=== PATIENT | female | born 1985 | race Caucasian/White ===

== ENCOUNTER 2017-01-29 04:34 | Emergency (ER) | payer OTHER, MEDICAID ==
[2017-01-29 05:00] VITALS: TEMP 98
[2017-01-29] MEDS ORDERED: Sodium Chloride 0.9% 1,000 ML IV STA (05:02)
--- NOTE | 2017-01-29 05:11 | ED PDOC ---
Arrival/HPI - General Historian: Patient - History of Present Illness Time/Duration: 1-3 hours Severity Level: Mild Activities at Onset: Light Context: Home <Parth Palafox - Last Filed: 01/29/17 05:08> <Florin Sultana - Last Filed: 01/29/17 08:56> - General Chief Complaint: Back Pain Time Seen by Provider: 01/29/17 04:48 - History of Present Illness Narrative History of Present Illness (Text): 01/29/17 05:08 Renetta Diane is a 31 year old female who presents to the emergency department for evaluation of left flank pain for past hour. States that she woke up from sleep with the pain. Reports of associated nausea with multiple episodes of vomiting. Denies any fever, chills, headache, dizziness, chest pain, shortness of breath, abdominal pain, urinary symptoms, or any other complaints at this time. (Parth Palafox) Past Medical History - Provider Review Nursing Documentation Reviewed: Yes - Infectious Disease Hx of Infectious Diseases: None - Tetanus Immunization Tetanus Immunization: Unknown - Past Medical History Past Medical History: No Previous - Psychiatric Hx Psychophysiologic Disorder: No Hx Anxiety: No Hx Bipolar Disorder: No Hx Depression: No Hx Emotional Abuse: No Hx Hallucinations: No Hx Panic Disorder: No Hx Post Traumatic Stress Disorder: No Hx Psychosis: No Hx Physical Abuse: No Hx Schizophrenia: No Hx Sexual Abuse: No Hx Substance Use: No - Past Surgical History Past Surgical History: No Previous - Surgical History Other/Comment: right ear - Anesthesia Hx Anesthesia: No Hx Anesthesia Reactions: No Hx Malignant Hyperthermia: No - Suicidal Assessment Feels Threatened In Home Enviroment: No <Parth Palafox - Last Filed: 01/29/17 05:08> Family/Social History - Physician Review Nursing Documentation Reviewed: Yes Family/Social History: No Known Family HX Smoking Status: Never Smoked Hx Alcohol Use: No Hx Substance Use: No Hx Substance Use Treatment: No <Parth Palafox - Last Filed: 01/29/17 05:08> Allergies/Home Meds <Parth Palafox - Last Filed: 01/29/17 05:08> <Florin Sultana - Last Filed: 01/29/17 08:56> Allergies/Adverse Reactions: Allergies acetaminophen [From Vicodin] Allergy (Verified 01/29/17 04:48) SWELLING hydrocodone [From Vicodin] Allergy (Verified 01/29/17 04:48) SWELLING oxycodone Allergy (Verified 01/29/17 04:48) SWELLING Review of Systems - Physician Review All systems were reviewed & negative as marked: Yes - Review of Systems Constitutional: Normal. absent: Fatigue, Fevers Respiratory: Normal. absent: SOB, Cough Cardiovascular: Normal. absent: Chest Pain, Palpitations Gastrointestinal: Nausea, Vomiting. absent: Abdominal Pain, Diarrhea Genitourinary Female: Normal. absent: Dysuria, Frequency, Hematuria, Vaginal Bleeding, Vaginal Discharge Musculoskeletal: Back Pain (left flank pain ) Neurological: Normal Psychiatric: Normal <Parth Palafox - Last Filed: 01/29/17 05:08> Physical Exam Vital Signs Reviewed: Yes Temperature: Afebrile Blood Pressure: Normal Pulse: Regular Respiratory Rate: Normal Appearance: Positive for: Well-Appearing, Non-Toxic, Comfortable Pain Distress: None Mental Status: Positive for: Alert and Oriented X 3 - Systems Exam Head: Present: Atraumatic, Normocephalic Pupils: Present: PERRL Conjunctiva: Present: Normal Mouth: Present: Moist Mucous Membranes Respiratory/Chest: Present: Clear to Auscultation, Good Air Exchange. No: Respiratory Distress, Accessory Muscle Use Cardiovascular: Present: Regular Rate and Rhythm, Normal S1, S2. No: Murmurs Abdomen: Present: Normal Bowel Sounds. No: Tenderness, Distention, Peritoneal Signs Back: Present: Normal Inspection. No: CVA Tenderness, Midline Tenderness, Paraspinal Tenderness Upper Extremity: Present: Normal Inspection. No: Cyanosis, Edema Lower Extremity: Present: Normal Inspection. No: Edema Neurological: Present: GCS=15, CN II-XII Intact, Speech Normal, Motor Func Grossly Intact, Normal Sensory Function Skin: Present: Warm, Dry, Normal Color. No: Rashes Psychiatric: Present: Alert, Oriented x 3, Normal Insight, Normal Concentration <Parth Palafox - Last Filed: 01/29/17 05:08> Medical Decision Making <Parth Palafox - Last Filed: 01/29/17 05:08> - RAD Interpretation Potato Picker: Radiologist <Florin Sultana - Last Filed: 01/29/17 08:56> ED Course and Treatment: 01/29/17 05:12 Impression: A 31 year old female presenting to emergency department complaining of left flank pain associated with nausea and vomiting since waking up today morning. Plan: -- Labs -- IV fluids -- Zofran -- HCG -- Urinalysis -- Reassess and disposition Progress Notes: (Parth Palafox) 01/29/17 07:49 Patient was turned over to me by , waiting for results of CT scan. Patient reports approximately 2 AM she developed severe left flank pain with radiation into her left groin. She is still in severe pain. She is writhing about on the stretcher. She has had her CT scan, but the results are pending. Her blood work is unrevealing. She does have hematuria on her UA. She had little improvement with 2 mg of morphine Toradol and Zofran. Dilaudid has been ordered. 01/29/17 08:52 Markedly improved after Dilaudid. 4 mm left ureter stone. Patient will be discharged home accompanied by her mother. Follow-up with PMD and neurologist. Prescription for Percocet and Zofran given. A note for work was given. (Florin Sultana) - Lab Interpretations Lab Results: 01/29/17 05:00 01/29/17 05:00 Lab Results 01/29/17 06:20: Urine Color Yellow, Urine Appearance Sl cloudy, Urine pH 6.0, Ur Specific [place] >= 1.030, Urine Protein 100 H, Urine Glucose (UA) Negative, Urine Ketones Negative, Urine Blood Large H, Urine Nitrate Negative, Urine Bilirubin Negative, Urine Urobilinogen 0.2, Ur Leukocyte Esterase Negative, Urine RBC 15 - 20, Urine WBC 1 - 3, Ur Epithelial Cells 1 - 3, Amorphous Sediment Small, Urine Bacteria Mod, Urine Other Mucus, Urine HCG, Qual Negative 01/29/17 05:00: Sodium 141, Potassium 3.7, Chloride 103, Carbon Dioxide 26, Anion Gap 16, BUN 17, Creatinine 0.9, Est GFR ( Amer) > 60, Est GFR (Non- Af Amer) > 60, Random Glucose 125 H, Calcium 9.4, Total Bilirubin 1.0, AST 26, ALT 37, Alkaline Phosphatase 77, Total Protein 8.3, Albumin 4.5, Globulin 3.8, Albumin/Globulin Ratio 1.2 01/29/17 05:00: WBC 9.0, RBC 4.60, Hgb 13.5, Hct 40.1, MCV 87.2, MCH 29.3, MCHC 33.7, RDW 13.8, Plt Count 254, MPV 11.2 H, Gran % 57.0, Lymph % (Auto) 33.8, [place] % (Auto) 6.4 H, Eos % (Auto) 2.2, Baso % (Auto) 0.6, Gran # 5.15, Lymph # 3.1, [place] # 0.6, Eos # 0.2, Baso # 0.05 - RAD Interpretation Radiology Orders: 01/29/17 06:17 ABD & PELVIS W/O PO OR IV CONT [CT] Stat CT scan of the abdomen and pelvis as read by the radiologist shows a 4 mm distal left ureter stone with hydronephrosis (Tolerico,Florin) - Medication Orders Current Medication Orders: Sodium Chloride (Sodium Chloride 0.9%) 1,000 mls @ 100 mls/hr IV .Q10H STA Stop: 01/29/17 15:01 Last Admin: 01/29/17 05:06 Dose: 100 mls/hr Discontinued Medications Hydromorphone HCl (Dilaudid) 1 mg IVP STAT STA Stop: 01/29/17 07:49 Last Admin: 01/29/17 08:06 Dose: 1 mg Ketorolac Tromethamine (Toradol) 30 mg IVP ONCE ONE Stop: 01/29/17 06:18 Last Admin: 01/29/17 06:30 Dose: 30 mg Morphine Sulfate (Morphine) 2 mg IVP STAT STA Stop: 01/29/17 06:46 Last Admin: 01/29/17 06:52 Dose: 2 mg Ondansetron HCl (Zofran Inj) 4 mg IVP STAT STA Stop: 01/29/17 05:03 Last Admin: 01/29/17 05:16 Dose: 4 mg Ondansetron HCl (Zofran Inj) Confirm Administered Dose 4 mg .ROUTE .STK-MED ONE Stop: 01/29/17 05:10 Last Admin: 01/29/17 06:51 Dose: Not Given Non-Admin Reason: Patient Refused Ondansetron HCl (Zofran Inj) 4 mg IVP STAT STA Stop: 01/29/17 05:52 Last Admin: 01/29/17 06:15 Dose: 4 mg - Scribe Statement The provider has reviewed the documentation as recorded by the Scribe <Parth Palafox - Last Filed: 01/29/17 05:08> <Florin Sultana - Last Filed: 01/29/17 08:56> - Scribe Statement Kimmy Sharpe (Parth Palafox) Provider Attestation: All medical record entries made by the Scribe were at my direction and personally dictated by me. I have reviewed the chart and agree that the record accurately reflects my personal performance of the history, physical exam, medical decision making, and the department course for this patient. I have also personally directed, reviewed, and agree with the discharge instructions and disposition. (Parth Palafox) Disposition/Present on Arrival - Present on Arrival History of DVT/PE: No History of Uncontrolled Diabetes: No Urinary Catheter: No History of Decub. Ulcer: No History Surgical Site Infection Following: None <Parth Palafox - Last Filed: 01/29/17 05:08> - Present on Arrival Any Indicators Present on Arrival: No History of DVT/PE: No History of Uncontrolled Diabetes: No Urinary Catheter: No History of Decub. Ulcer: No - Disposition Have Diagnosis and Disposition been Completed?: Yes Disposition Time: 08:54 Patient Plan: Discharge <Florin Sultana - Last Filed: 01/29/17 08:56> - Disposition Diagnosis: Renal colic on left side, Kidney stone on left side Disposition: HOME/ ROUTINE Condition: IMPROVED Discharge Instructions (ExitCare): Renal Colic (ED) Additional Instructions: Increase fluids. Follow-up with PMD urologist. Follow-up as needed in ER. Prescriptions: oxyCODONE/Acetaminophen [Percocet 5/325 mg Tab] 1 ea PO Q6 #15 tab Ondansetron [Zofran Odt] 4 mg SL Q6 #20 odt Forms: WORK NOTE
[2017-01-29 05:12] LABS: ADD MANUAL DIFF? NO
[2017-01-29 05:15] LABS: BASO # 0.05 K/mm3 (0.0-2.0); BASO % 0.6 % (0.0-3.0); EOS # 0.2 (0.0-0.7); EOS % 2.2 % (1.5-5.0); GRAN # 5.15 (1.4-6.5); HEMATOCRIT 40.1 % (36.0-48.0); LYMPH # 3.1 (1.2-3.4); LYMPH % 33.8 % (22.0-35.0); MEAN CELL VOLUME 87.2 fL (80.0-105.0); MEAN CORPUSCULAR HEMOGLOBIN 29.3 pg (25.0-35.0); MEAN CORPUSCULAR HGB CONC 33.7 g/dl (31.0-37.0); MEAN PLATELET VOLUME 11.2 fl (7.0-11.0); MONO # 0.6 (0.1-0.6); MONO % 6.4 % (1.0-6.0); PLATELET COUNT 254 10^3/uL (120.0-450.0); RED CELL DISTRIBUTION WIDTH 13.8 % (11.5-14.5)
[2017-01-29 05:25] LABS: ALB/GLOB RATIO 1.2 (1.1-1.8); ALKALINE PHOSPHATASE 77 U/L (38-133); ALT/SGPT 37 U/L (7-56); AST/SGOT 26 U/L (15-39); BLOOD UREA NITROGEN 17 mg/dL (7-21); CALCIUM 9.4 mg/dL (8.4-10.5); CARBON DIOXIDE 26 mmol/L (21-33); CHLORIDE 103 mmol/L (95-110); GFR AFRICAN-AMERICAN > 60; GLUCOSE,RANDOM 125 mg/dL (70-110); POTASSIUM 3.7 mmol/L (3.6-5.0); SODIUM 141 mmol/L (132-148); TOTAL PROTEIN 8.3 g/dL (5.8-8.3)
[2017-01-29 06:36] LABS: URINE BILIRUBIN NEGATIVE (NEGATIVE); URINE BLOOD LARGE (NEGATIVE); URINE GLUCOSE (UA) NEGATIVE (NEGATIVE); URINE KETONE NEGATIVE (NEGATIVE); URINE LEUKOCYTE ESTERASE NEGATIVE Leu/uL (NEGATIVE); URINE PROTEIN 100 mg/dL (<30 mg/dL); URINE UROBILINOGEN 0.2 E.U./dL (<1 E.U./dL)
[2017-01-29 06:40] LABS: URINE APPEARANCE SL CLOUDY (CLEAR); URINE COLOR YELLOW (YELLOW)
[2017-01-29] MEDS ORDERED: Morphine 2 mg/ml ISec IVP STA (06:45)
[2017-01-29 06:48] LABS: URINE AMORPHOUS SEDIMENT SMALL; URINE BACTERIA MOD (NEG); URINE RBC 15 - 20 /hpf (0-2)
[2017-01-29] MEDS ORDERED: HYDROmorphone 1 mg/ml ISec IVP STA (07:48)
--- NOTE | 2017-01-29 07:59 | CT ---
PROCEDURE: CT Abdomen and Pelvis without intravenous contrast HISTORY: left flank pain COMPARISON: None. TECHNIQUE: Without contrast.. Contrast Dose: 0 Radiation dose: Total exam DLP = 588.96 mGy-cm. This CT exam was performed using one or more of the following dose reduction techniques: Automated exposure control, adjustment of the mA and/or kV according to patient size, and/or use of iterative reconstruction technique. FINDINGS: LOWER THORAX: Unremarkable. LIVER: Unremarkable. No gross lesion or ductal dilatation. GALLBLADDER AND BILE DUCTS: Unremarkable. PANCREAS: Unremarkable. No gross lesion or ductal dilatation. SPLEEN: Unremarkable. ADRENALS: Unremarkable. No mass. KIDNEYS AND URETERS: Left hydroureteronephrosis. Obstructing 4 mm distal left ureteral calculus proximal to the UVJ. No renal calculus. No right hydronephrosis. No renal mass. VASCULATURE: Unremarkable. No aortic aneurysm. BOWEL: Unremarkable. No obstruction. No gross mural thickening. APPENDIX: Unremarkable. Normal appendix. PERITONEUM: Unremarkable. No free fluid. No free air. LYMPH NODES: Unremarkable. No enlarged lymph nodes. BLADDER: Nondistended. REPRODUCTIVE: Uterus contains an IUD. Otherwise unremarkable. BONES: No acute fracture. OTHER FINDINGS: None. IMPRESSION: 4 mm obstructing distal left ureteral calculus with left hydroureteronephrosis. No other significant abnormality.
[2017-01-29 08:19] VITALS: BP 117/76; PULSE 69; RESP 20; O2SAT 96
== END 2017-01-29 09:14 | disposition home or self-care (01) ==
LOC: ED 04:34
DX: N23 Unspecified renal colic (principal); N20.0 Calculus of kidney
CPT/HCPCS: 74176; 80053; 81001; 84703; 85025; 96374; 96375; 96376; 99285; J1170; J1885; J2270; J2405; J7040

== ENCOUNTER 2018-01-13 08:51 | Emergency (ER) | payer MEDICAID, OTHER ==
[2018-01-13 09:08] VITALS: TEMP 97.8
[2018-01-13] MEDS ORDERED: Sodium Chloride 0.9% 1,000 ML IV STA (09:20)
--- NOTE | 2018-01-13 09:39 | ED PDOC ---
Arrival/HPI - General Chief Complaint: Female Genitourinary Time Seen by Provider: 01/13/18 09:20 Historian: Patient - History of Present Illness Narrative History of Present Illness (Text): 01/13/18 09:36 32yr old female presents today with left sided upper abdominal pain and left flank pain. pt with hx of multiple Utis in the past and hx of kidney stones. pt c/o occasional dysuria. no fever/chills. pt c/o nausea and vomiting. no cp or sob. no other complaints. Time/Duration: Other (2 days) Symptom Onset: Gradual Symptom Course: Worsening Quality: Aching, Stabbing, Burning Severity Level: 7 Past Medical History - Provider Review Nursing Documentation Reviewed: Yes - Travel History Have you recently traveled outside [place] w/in the past 3 mons?: No - Infectious Disease Hx of Infectious Diseases: None - Tetanus Immunization Tetanus Immunization: Unknown - Past Medical History Past Medical History: No Previous - Pulmonary Hx Asthma: Yes - Psychiatric Hx Psychophysiologic Disorder: No Hx Anxiety: No Hx Bipolar Disorder: No Hx Depression: No Hx Emotional Abuse: No Hx Hallucinations: No Hx Panic Disorder: No Hx Post Traumatic Stress Disorder: No Hx Psychosis: No Hx Physical Abuse: No Hx Schizophrenia: No Hx Sexual Abuse: No Hx Substance Use: No - Past Surgical History Past Surgical History: No Previous - Surgical History Other/Comment: right ear. right foot sx - Anesthesia Hx Anesthesia: No Hx Anesthesia Reactions: No Hx Malignant Hyperthermia: No - Suicidal Assessment Feels Threatened In Home Enviroment: No Family/Social History - Physician Review Nursing Documentation Reviewed: Yes Family/Social History: Unknown Family HX Smoking Status: Never Smoked Hx Alcohol Use: No Hx Substance Use: No Hx Substance Use Treatment: No Allergies/Home Meds Allergies/Adverse Reactions: Allergies acetaminophen [From Vicodin] Allergy (Verified 01/29/17 04:48) SWELLING hydrocodone [From Vicodin] Allergy (Verified 01/29/17 04:48) SWELLING oxycodone Allergy (Verified 01/29/17 04:48) SWELLING Review of Systems - Review of Systems Constitutional: absent: Fatigue, Fevers Respiratory: absent: SOB, Cough Cardiovascular: absent: Chest Pain, Palpitations Gastrointestinal: Abdominal Pain, Nausea, Vomiting. absent: Constipation, Diarrhea Genitourinary Female: Dysuria. absent: Hematuria, Vaginal Bleeding, Vaginal Discharge Musculoskeletal: Back Pain. absent: Arthralgias, Neck Pain Skin: absent: Rash, Pruritis Neurological: absent: Headache, Dizziness Psychiatric: absent: Anxiety, Depression Physical Exam Vital Signs Reviewed: Yes Vital Signs Temp Pulse Resp BP Pulse Ox 01/13/18 10:32 86 18 106/62 100 01/13/18 08:52 97.8 F 98 H 20 112/87 97 Temperature: Afebrile Blood Pressure: Normal Pulse: Regular Respiratory Rate: Normal Appearance: Positive for: Well-Appearing, Non-Toxic, Comfortable Pain Distress: None Mental Status: Positive for: Alert and Oriented X 3 - Systems Exam Head: Present: Atraumatic Mouth: Present: Moist Mucous Membranes Neck: Present: Normal Range of Motion Respiratory/Chest: Present: Clear to Auscultation, Good Air Exchange. No: Respiratory Distress, Accessory Muscle Use Cardiovascular: Present: Regular Rate and Rhythm, Normal S1, S2. No: Murmurs Abdomen: Present: Tenderness (LUQ tenderness), Guarding. No: Distention, Peritoneal Signs, Rebound Back: Present: Normal Inspection, CVA Tenderness (left sided CVA tenderness). No: Midline Tenderness, Paraspinal Tenderness Upper Extremity: Present: Normal ROM Lower Extremity: Present: Normal ROM Neurological: Present: GCS=15, Speech Normal Skin: Present: Warm, Dry, Normal Color. No: Rashes Psychiatric: Present: Alert, Oriented x 3 Medical Decision Making ED Course and Treatment: 01/13/18 09:41 Patient is nontoxic well appearing with stable vital signs presenting with luq abdominal pain and left flank pain CBC wnl CMP wnl Lipase: wnl Urinalysis wnl CAT scan: FINDINGS: LOWER THORAX: Unremarkable. LIVER: Unremarkable. No gross lesion or ductal dilatation. GALLBLADDER AND BILE DUCTS: Unremarkable. PANCREAS: Unremarkable. No gross lesion or ductal dilatation. SPLEEN: Unremarkable. ADRENALS: Unremarkable. No mass. KIDNEYS AND URETERS: Unremarkable. No hydronephrosis. No solid mass. VASCULATURE: Unremarkable. No aortic aneurysm. BOWEL: Unremarkable. No obstruction. No gross mural thickening. APPENDIX: Unremarkable. Normal appendix. PERITONEUM: Unremarkable. No free fluid. No free air. LYMPH NODES: Unremarkable. No enlarged lymph nodes. BLADDER: Unremarkable. REPRODUCTIVE: There is a left ovarian cyst measuring 3 x 3.8 cm. This has increased in size. There is an IUD within the endometrial canal. BONES: No acute fracture. OTHER FINDINGS: None. IMPRESSION: Enlarging left ovarian cyst. No evidence of urolithiasis. Ultrasound; FINDINGS: UTERUS: Measures 3.9 x 6.1 x 8.4 cm. Normal in size and appearance. No fibroid or other mass lesion seen. ENDOMETRIUM: Measures 2.2 mm in diameter. Trace fluid in the endometrial canal. Intrauterine contraceptive device (IUD) identified CERVIX: Trace fluid in the cervical canal RIGHT OVARY: Measures 1.6 x 2.8 x 3 cm. No solid mass. Normal flow. Multiple subcentimeter follicles. LEFT OVARY: Measures 3.7 x 4.7 x 5.1 cm. No solid mass. Normal flow. Well-circumscribed cyst 5 x 4.7 x 3.1 cm. Debris identified within the cysts as are echogenic foci. Complex cyst more likely than endometrioma/dermoid. FREE FLUID: No significant free fluid noted. OTHER FINDINGS: None. IMPRESSION: Complex common debris laden left adnexal cyst. Additional benign and/or incidental findings described above. Patient reassessment: pt non toxic well appearing; no distress. Discussed all results with patient in depth, adivsed motrin for pain, will cover with abx for urinary symptoms. advised f/u with INSPECTION SUPERVISOR within the next 2 days. advised immediate return if symptoms worsen,persist or if new symptoms develop. Patient verbalizes understanding of discharge instructions and need for immediate followup. all aspects of this case were discussed the attending of record. Impression: Abdominal pain, ovarian cyst, Motrin every 6 hours as needed for pain keflex; 1 tablet twice daily x 7 days. Follow up with the INSPECTION SUPERVISOR within the next 2 days. Follow up with primary care physician within the next 2 days Return immediately if symptoms worsen persist or if new symptoms develop: High fevers, increasing pain, vomiting, diarrhea or any other concerning symptoms develop - Lab Interpretations Lab Results: 01/13/18 09:30 01/13/18 09:30 Lab Results 01/13/18 09:30: WBC 11.0 D, RBC 4.82, Hgb 13.9, Hct 41.8, MCV 86.7, MCH 28.8, MCHC 33.3, RDW 13.9, Plt Count 218, MPV 10.3, Gran % 58.4, Lymph % (Auto) 23.4, [place] % (Auto) 12.0 H, Eos % (Auto) 5.7 H, Baso % (Auto) 0.5, Gran # 6.40, Lymph # (Auto) 2.6, [place] # (Auto) 1.3 H, Eos # (Auto) 0.6, Baso # (Auto) 0.05 01/13/18 09:30: Sodium 140, Potassium 3.8, Chloride 104, Carbon Dioxide 25, Anion Gap 16, BUN 11, Creatinine 0.7, Est GFR ( Amer) > 60, Est GFR (Non- Af Amer) > 60, Random Glucose 90, Calcium 9.0, Total Bilirubin 0.3, AST 27, ALT 37, Alkaline Phosphatase 70, Total Protein 7.7, Albumin 4.4, Globulin 3.2, Albumin/Globulin Ratio 1.4, Lipase 71 01/13/18 09:30: Urine Color Yellow, Urine Appearance Clear, Urine pH 6.0, Ur Specific [place] >= 1.030, Urine Protein Negative, Urine Glucose (UA) Negative, Urine Ketones Negative, Urine Blood Negative, Urine Nitrate Negative, Urine Bilirubin Negative, Urine Urobilinogen 0.2, Ur Leukocyte Esterase Negative - RAD Interpretation Radiology Orders: 01/13/18 09:28 ABD & PELVIS W/O PO OR IV CONT [CT] Stat 01/13/18 10:21 TRANSVAGINAL [US] Stat - Medication Orders Current Medication Orders: Discontinued Medications Sodium Chloride (Sodium Chloride 0.9%) 1,000 mls @ 999 mls/hr IV .Q1H1M STA Stop: 01/13/18 10:20 Last Admin: 01/13/18 09:26 Dose: 999 mls/hr eMAR Start Stop Document 01/13/18 09:26 EQ (Rec: 01/13/18 09:26 EQ [id number]) Intravenous Solution Start Date 01/13/18 Start Time 09:26 Ketorolac Tromethamine (Toradol) 30 mg IVP STAT STA Stop: 01/13/18 09:28 Last Admin: 01/13/18 09:53 Dose: 30 mg MAR Pain Assessment Document 01/13/18 09:53 EQ (Rec: 01/13/18 09:53 EQ [id number]) Pain Reassessment Is this a pain reassessment? No Sleep Is patient sleeping during reassessment? No Presence of Pain Presence of Pain Yes Pain Scale Used Pain Scale Used Numeric IVP Administration Document 01/13/18 09:53 EQ (Rec: 01/13/18 09:53 EQ [id number]) Charges for Administration # of IVP Administrations 1 Ondansetron HCl (Zofran Inj) 4 mg IVP STAT STA Stop: 01/13/18 09:28 Last Admin: 01/13/18 09:53 Dose: 4 mg IVP Administration Document 01/13/18 09:53 EQ (Rec: 01/13/18 09:53 EQ [id number]) Charges for Administration # of IVP Administrations 1 Disposition/Present on Arrival - Present on Arrival Any Indicators Present on Arrival: No History of DVT/PE: No History of Uncontrolled Diabetes: No Urinary Catheter: No History of Decub. Ulcer: No History Surgical Site Infection Following: None - Disposition Have Diagnosis and Disposition been Completed?: Yes Diagnosis: Abdominal pain, Ovarian cyst Disposition: HOME/ ROUTINE Disposition Time: 11:54 Patient Plan: Discharge Patient Problems: Current Active Problems Problem Status Onset Abdominal pain Acute Ovarian cyst Acute Condition: GOOD Discharge Instructions (ExitCare): Ovarian Cysts, Acute Abdomen (Belly Pain), Flank Pain (DC) Additional Instructions: Motrin every 6 hours as needed for pain keflex; 1 tablet twice daily x 7 days. Follow up with the INSPECTION SUPERVISOR within the next 2 days. Follow up with primary care physician within the next 2 days Return immediately if symptoms worsen persist or if new symptoms develop: High fevers, increasing pain, vomiting, diarrhea or any other concerning symptoms develop Prescriptions: Cephalexin [Keflex] 500 mg PO BID #14 capsule Ibuprofen [Motrin] 600 mg PO Q6H PRN #20 tab PRN Reason: pain/fever reduction Referrals: Neelma Salamanca MD [Primary Care Provider] - Follow up with primary Funmilayo Pérez MD [Staff Provider] - [facility] - Follow up with primary Forms: [employer] (Nepali), WORK NOTE
[2018-01-13 09:41] LABS: BASO # 0.05 K/mm3 (0.0-2.0); BASO % 0.5 % (0.0-3.0); EOS # 0.6 (0.0-0.7); EOS % 5.7 % (1.5-5.0); GRAN # 6.4 (1.4-6.5); GRAN % 58.4 % (50.0-68.0); HEMOGLOBIN 13.9 g/dL (12.0-16.0); LYMPH # 2.6 (1.2-3.4); LYMPH % 23.4 % (22.0-35.0); MEAN CELL VOLUME 86.7 fl (80.0-105.0); MEAN CORPUSCULAR HEMOGLOBIN 28.8 pg (25.0-35.0); MEAN CORPUSCULAR HGB CONC 33.3 g/dl (31.0-37.0); MEAN PLATELET VOLUME 10.3 fl (7.0-11.0); MONO # 1.3 (0.1-0.6); RBC 4.82 10^6/uL (3.5-6.1); RED CELL DISTRIBUTION WIDTH 13.9 % (11.5-14.5); URINE BILIRUBIN NEGATIVE (NEGATIVE); URINE BLOOD NEGATIVE (NEGATIVE); URINE GLUCOSE (UA) NEGATIVE (NEGATIVE); URINE LEUKOCYTE ESTERASE NEGATIVE Leu/uL (NEGATIVE); URINE PROTEIN NEGATIVE mg/dL (<30 mg/dL); URINE UROBILINOGEN 0.2 E.U./dL (<1 E.U./dL)
[2018-01-13 09:48] LABS: URINE APPEARANCE CLEAR (CLEAR); URINE COLOR YELLOW (YELLOW)
[2018-01-13 09:53] LABS: ALB/GLOB RATIO 1.4 (1.1-1.8); ALBUMIN 4.4 g/dL (3.0-4.8); ALT/SGPT 37 U/L (7-56); AST/SGOT 27 U/L (14-36); BLOOD UREA NITROGEN 11 mg/dL (7-21); GFR AFRICAN-AMERICAN > 60; GFR NON-AFRICAN AMERICAN > 60; LIPASE 71 U/L (23-300)
--- NOTE | 2018-01-13 10:12 | CT ---
PROCEDURE: CT Abdomen and Pelvis without intravenous contrast HISTORY: LUQ pain/left flank pain COMPARISON: None. TECHNIQUE: Without contrast.. Contrast Dose: Radiation dose: Total exam DLP = Total exam DLP = 467 mGy-cm. This CT exam was performed using one or more of the following dose reduction techniques: Automated exposure control, adjustment of the mA and/or kV according to patient size, and/or use of iterative reconstruction technique. FINDINGS: LOWER THORAX: Unremarkable. LIVER: Unremarkable. No gross lesion or ductal dilatation. GALLBLADDER AND BILE DUCTS: Unremarkable. PANCREAS: Unremarkable. No gross lesion or ductal dilatation. SPLEEN: Unremarkable. ADRENALS: Unremarkable. No mass. KIDNEYS AND URETERS: Unremarkable. No hydronephrosis. No solid mass. VASCULATURE: Unremarkable. No aortic aneurysm. BOWEL: Unremarkable. No obstruction. No gross mural thickening. APPENDIX: Unremarkable. Normal appendix. PERITONEUM: Unremarkable. No free fluid. No free air. LYMPH NODES: Unremarkable. No enlarged lymph nodes. BLADDER: Unremarkable. REPRODUCTIVE: There is a left ovarian cyst measuring 3 x 3.8 cm. This has increased in size. There is an IUD within the endometrial canal. BONES: No acute fracture. OTHER FINDINGS: None. IMPRESSION: Enlarging left ovarian cyst. No evidence of urolithiasis.
[2018-01-13 10:34] VITALS: O2SAT 100
--- NOTE | 2018-01-13 11:39 | US ---
HISTORY: Pain. Relevant medical history:Urinary tract infection. LMP: Unknown. COMPARISON: January 13, 2018. CT abdomen and pelvis TECHNIQUE: Transvaginal only. Real -time technique with 2D, duplex and color Doppler FINDINGS: UTERUS: Measures 3.9 x 6.1 x 8.4 cm. Normal in size and appearance. No fibroid or other mass lesion seen. ENDOMETRIUM: Measures 2.2 mm in diameter. Trace fluid in the endometrial canal. Intrauterine contraceptive device (IUD) identified CERVIX: Trace fluid in the cervical canal RIGHT OVARY: Measures 1.6 x 2.8 x 3 cm. No solid mass. Normal flow. Multiple subcentimeter follicles. LEFT OVARY: Measures 3.7 x 4.7 x 5.1 cm. No solid mass. Normal flow. Well-circumscribed cyst 5 x 4.7 x 3.1 cm. Debris identified within the cysts as are echogenic foci. Complex cyst more likely than endometrioma/dermoid. FREE FLUID: No significant free fluid noted. OTHER FINDINGS: None. IMPRESSION: Complex common debris laden left adnexal cyst. Additional benign and/or incidental findings described above.
[2018-01-13 12:10] VITALS: BP 102/74; PULSE 82; RESP 16
== END 2018-01-13 12:29 | disposition home or self-care (01) ==
LOC: ED 08:51
DX: N83.202 Unspecified ovarian cyst, left side (principal); R10.9 Unspecified abdominal pain; Z87.440 Personal history of urinary (tract) infections; Z87.442 Personal history of urinary calculi
CPT/HCPCS: 74176; 76830; 80053; 81003; 83690; 85025; 96374; 96375; 99284; J1885; J2405; J7040